=== PATIENT | female | born 1990 | race African-American/Black ===

== ENCOUNTER 2019-08-03 21:39 | Emergency (ER) | payer OTHER ==
[~2019-08-03] VITALS: Ht 170.2 cm; Wt 59.0 kg
[2019-08-03] MEDS ORDERED: FENTANYL CITRATE/PF 50MCG/ML 2ML VIAL IV ONE (22:00)
[2019-08-03] MEDS ORDERED: KETOROLAC 30MG/ML VIAL IV ONE (22:30)
[2019-08-03] MEDS ORDERED: ONDANSETRON HCL 4MG/2ML INJ IV ONE (23:00)
[2019-08-03] MEDS ORDERED: KETAMINE HCL 50 MG/ML 10ML IV ONE (23:00)
[2019-08-03] MEDS ORDERED: PROPOFOL 200MG/20ML VIAL IV ONE (23:00)
[2019-08-03] MEDS ORDERED: LIDOCAINE HCL 1% 20ML VIAL (Pyxis) INJ ONE (23:33)
[2019-08-04] MEDS ORDERED: LIDOCAINE 1%/EPI 1:100,000 10 ML VIAL IJ ONE
[2019-08-04] MEDS ORDERED: TETANUS, DIPHTHERIA, PERTUSSIS VAC/PF 0.5ML (>7YR OLD) IM ONE
[2019-08-04] MEDS ORDERED: FENTANYL CITRATE/PF 50MCG/ML 2ML VIAL IV ONE (02:00)
[2019-08-04] MEDS ORDERED: HYDROCODONE/ACETAMINOPHEN 5/325MG TABLET PO ONE ×2 (03:30→07:45)
[2019-08-04 07:51] VITALS: BP 148/97
== END 2019-08-04 08:12 | disposition short-term general hospital (02) ==
LOC: ER 21:39
DX: S52.501A Unspecified fracture of the lower end of right radius, initial encounter for closed fracture (principal); S61.411A Laceration without foreign body of right hand, initial encounter; F41.9 Anxiety disorder, unspecified; F32.9 Major depressive disorder, single episode, unspecified; F17.200 Nicotine dependence, unspecified, uncomplicated; V49.9XXA Car occupant (driver) (passenger) injured in unspecified traffic accident, initial encounter; Y93.89 Activity, other specified; Y92.89 Other specified places as the place of occurrence of the external cause; Y99.8 Other external cause status
CPT/HCPCS: 12004; 25605; 73100; 90471; 90715; 93005; 96374; 96375; 99285; A4217; J1885; J2405; J2704; J3010; J3490; Z7610; A4565